=== PATIENT | female | born 1980 | race Caucasian/White ===

== ENCOUNTER 2016-04-09 19:13 | Emergency (ER) | payer OTHER ==
[~2016-04-09] VITALS: Ht 180.3 cm; Wt 131.0 kg
[~2016-04-09 19:13] MED LIST: AMBIEN5 MG PO; AMLODIPINE BESY10 MG PO; ASPIR-LOW81 MG PO; ASPIRIN81 M2 PO; BENZTROPINE MESY1 MG PO; CALCIUM 600 +1 EAC2 PO; CLONAZEPAM2 MG PO; CLONIDINE HCL0.1 MG PO; COGENTIN0.5 MG PO; COLACE100 MG PO; DAILY VALUE1 EACH PO; DEPAKOTE500 MG PO; DOCUSATE SODIU100 MG PO; DOXEPIN HCL25 MG PO; FLUPHENAZINE DECANOATE IM; FLUPHENAZINE HCL1 MG PO; FLUPHENAZINE PO; FORTAMET1000 M1 PO; GERI-LANTA LIQ355 ML PO; GLUCAGON1 MG IM; GLUCOPHAGE1000 MG PO; GLUCOPHAGE500 MG PO; GLUCOSE PO; KLONOPIN0.5 M1 PO; KLONOPIN1 MG PO; LAMICTAL100 MG PO; LAMICTAL200 MG PO; LEVOTHYROXINE88 MCG PO; LIDEX 0.05% CRE60 GM TP; LINZESS145 MCG PO; LISINOPRIL20 MG PO; LITHIUM CARBON150 MG PO; LITHIUM CARBON300 MG PO; LITHIUM CARBON450 MG PO; LITHIUM CARBON600 MG PO; LOTRIMIN AF24 GM TP; LOW DOSE ASPIRI81 M2 PO; METAMUCIL PACKE1 PKT PO; METAMUCIL POWD798 GM PO; METFORMIN HCL500 MG PO; MIRALAX17 GM PO; MOTRIN800 MG PO; MULTI-DAY PLUS1 EACH PO; MULTIVITAMIN1 EAC2 PO; NAPROSYN500 MG PO; NICODERM CQ1 EAC2 TD; NORCO 7.5/321 TABLET PO; NORVASC10 MG PO; NOVOLOG 10100 UNITS/ SC; OMEPRAZOLE20 MG PO; OXCARBAZEPINE300 MG PO; PHENTERMINE HCL15 MG PO; PHILLIPS'400 MG/5 M PO; PIOGLITAZONE HC30 MG PO; PRILOSEC20 MG PO; PRINIVIL10 MG PO; PROLIXIN10 MG PO; PROLIXIN2.5 MG/ML IM; PROTONIX40 MG PO; RISPERDAL2 MG PO; RISPERDAL3 MG PO; RISPERIDONE3 MG PO; SEROQUEL400 MG PO; SINEQUAN50 MG PO; SYNTHROID50 MCG PO; SYNTHROID88 MCG PO; TOPAMAX100 MG PO; TOPAMAX50 MG PO; TOPIRAGEN100 MG PO; TOPIRAMATE100 MG PO; TOPIRAMATE50 MG PO; TRILEPTAL300 MG PO; TRILEPTAL75 MG PO; TUMS300 MG PO; TYLENOL REGULA325 MG PO
[2016-04-09 22:00] VITALS: BP 141/84
== END 2016-04-09 22:00 ==
LOC: EME 19:13
DX: H11.31 Conjunctival hemorrhage, right eye (principal)
CPT/HCPCS: 99281; 99284

== ENCOUNTER 2017-02-14 13:49 | Emergency (ER) | payer OTHER ==
[~2017-02-14] VITALS: Ht 180.3 cm; Wt 133.4 kg
[2017-02-14 17:15] VITALS: BP 104/63
[2017-02-15] MEDS ORDERED: COGENTIN1 MG PO (18:04)
[2017-02-15] MEDS ORDERED: MIRALAX255 GM PO (18:08)
== END 2017-02-14 17:15 | disposition home or self-care (01) ==
LOC: EME 13:49
DX: T82.898A Other specified complication of vascular prosthetic devices, implants and grafts, initial encounter (principal); L90.5 Scar conditions and fibrosis of skin; F70 Mild intellectual disabilities; E11.9 Type 2 diabetes mellitus without complications; I10 Essential (primary) hypertension; K21.9 Gastro-esophageal reflux disease without esophagitis; R56.9 Unspecified convulsions; Z79.82 Long term (current) use of aspirin
CPT/HCPCS: 71010; 99281; 99285